=== PATIENT | female | born 1990 | race Asian ===

== ENCOUNTER 2016-08-16 03:25 | Emergency (ER) | payer OTHER ==
[~2016-08-16] VITALS: Ht 165.1 cm; Wt 60.2 kg
[2016-08-16 03:28] VITALS: TEMP 36.8; Ht 165.1 cm; Wt 60.2 kg
[2016-08-16] MEDS ORDERED: SODIUM CHLORIDE 0.9% 1000ML 1,000 ML IV STA (03:37)
[2016-08-16] MEDS ORDERED: FAMOTIDINE IV INJ 20 MG in DEXTROSE 5% 100ML 100 ML IV STA (03:37)
[2016-08-16] MEDS ORDERED: ONDANSETRON INJ 2 MG/ML 2 ML VIAL IV STA (03:37)
[2016-08-16] MEDS ORDERED: FAMOTIDINE 20MG/102 ML D5W ONE (03:47)
[2016-08-16 03:57] LABS: BASO % 0.1 %; BASO ABS # 0.01 K/uL (0-0.2); COMPLETE YES; EOS % 0.5 %; HEMATOCRIT 38.3 % (37-47); IG% 0.1 %; LYMPH % 10.4 %; MEAN CORPUSCULAR HEMOGLOBIN 32.3 pg (25-34); MEAN CORPUSCULAR HGB CONC 33.7 g/dl (32-36); MEAN PLATELET VOLUME 9.8 fL (7.4-10.4); MONO % 5.9 %; PLATELET COUNT 238 K/uL (130-400); RED BLOOD COUNT 3.99 M/uL (4.2-5.4); WHITE BLOOD COUNT 8.64 K/uL (4.8-10.8)
[2016-08-16 04:16] LABS: BUN/CREATININE RATIO 30.1 (10-20); CALCIUM 8.9 mg/dl (8.5-10.1); CREATININE 0.66 mg/dl (0.60-1.20); POTASSIUM 3.8 mmol/L (3.5-5.1)
[2016-08-16 04:18] LABS: PREG INTERNAL NEGATIVE QC NEG CLEAR BACKGROUND; PREG INTERNAL POSITIVE QC POS CONTROL LINE
--- NOTE | 2016-08-16 04:22 | EMERGENCY ROOM VISIT NOTE ---
History First contact with patient: 03:32 Chief Complaint: ABDOMINAL PAIN Stated Complaint: ABD PAIN,VOMITING History of Present Illness The patient is a 25 year old female who presents to the Emergency Room with complaints of nausea and vomiting and upset stomach for the past few hours after eating hot pot soup tonight. Boyfriend is not sick. They ate the same thing. Patient denies chest pain, dyspnea, fever, chills, diarrhea, back pain, urinary symptoms. No other concerns per patient. Review of Systems See HPI for pertinent positives & negatives. A total of 10 systems reviewed and were otherwise negative. Past Medical/Surgical History None Social History Smoking Status: Never Smoker Smokeless Tobacco Use: No Alcohol Use: none Drug Use: none Marital Status: in relationship Occupation Status: [email or web address] student Current/Historical Medications No Active Prescriptions or Reported Meds Allergies Coded Allergies: No Known Allergies (Unverified , 08/16/16) Physical Exam Vital Signs Date Time Temp Pulse Resp B/P Pulse Ox O2 Delivery O2 Flow Rate FiO2 08/16/16 03:28 36.8 87 18 113/74 98 Room Air Physical Exam VITALS: Vitals are noted on the nurse's note and reviewed by myself. Vital signs stable. GENERAL: Pleasant female actively vomiting, in no acute distress, nondiaphoretic , well-developed well-nourished. SKIN: The skin was without rashes, erythema, edema, or bruising. There is no tenting of the skin. Capillary reflex less than 2 seconds. HEAD: Normocephalic atraumatic. EARS: External auditory canals clear, tympanic membranes pearly wells without erythema or effusion bilaterally. EYES: Pupils equal round and reactive to light and accommodation. Conjunctivae without injection, sclerae without icterus. Extraocular movements intact. NOSE: Patent, turbinates without inflammation or discharge. MOUTH: Mucous membranes mildly dry. Pharynx without erythema or exudate. Uvula midline. Airway patent. Tongue does not deviate. NECK: Supple without nuchal rigidity. No lymphadenopathy. No thyromegaly. Cervical spine is nontender. No JVD. HEART: Regular rate and rhythm without murmurs gallops or rubs. LUNGS: Clear to auscultation bilaterally without wheezes, rales or rhonchi. No dullness to percussion. No retractions or accessory muscle use. ABDOMEN: Positive bowel sounds x 4. Normal tympanic percussion. Soft, nontender, without masses or organomegaly. Kay sign negative. No guarding or rebound tenderness. No CVA tenderness MUSCULOSKELETAL: No muscle atrophy, erythema, or edema noted. NEURO: Patient was alert and oriented to person place and time. Normal sensation to light and sharp touch. No focal neurological deficits. Medical Decision & Procedures Laboratory Results 08/16/16 03:45 Red Blood Count 3.99, Mean Corpuscular Volume 96.0, Mean Corpuscular Hemoglobin 32.3, Mean Corpuscular Hemoglobin Concent 33.7, Mean Platelet Volume 9.8, Neutrophils (%) (Auto) 83.0, Lymphocytes (%) (Auto) 10.4, Monocytes (%) (Auto) 5.9, Eosinophils (%) (Auto) 0.5, Basophils (%) (Auto) 0.1, Neutrophils # (Auto) 7.17, Lymphocytes # (Auto) 0.90, Monocytes # (Auto) 0.51, Eosinophils # (Auto) 0.04, Basophils # (Auto) 0.01 08/16/16 03:45 Test 08/16/16 03:45 White Blood Count 8.64 K/uL (4.8-10.8) Red Blood Count 3.99 M/uL (4.2-5.4) Hemoglobin 12.9 g/dL (12.0-16.0) Hematocrit 38.3 % (37-47) Mean Corpuscular Volume 96.0 fL (80-100) Mean Corpuscular Hemoglobin 32.3 pg (25-34) Mean Corpuscular Hemoglobin Concent 33.7 g/dl (32-36) Platelet Count 238 K/uL (130-400) Mean Platelet Volume 9.8 fL (7.4-10.4) Neutrophils (%) (Auto) 83.0 % Lymphocytes (%) (Auto) 10.4 % Monocytes (%) (Auto) 5.9 % Eosinophils (%) (Auto) 0.5 % Basophils (%) (Auto) 0.1 % Neutrophils # (Auto) 7.17 K/uL (1.4-6.5) Lymphocytes # (Auto) 0.90 K/uL (1.2-3.4) Monocytes # (Auto) 0.51 K/uL (0.11-0.59) Eosinophils # (Auto) 0.04 K/uL (0-0.5) Basophils # (Auto) 0.01 K/uL (0-0.2) RDW Standard Deviation 44.6 fL (36.4-46.3) RDW Coefficient of Variation 12.7 % (11.5-14.5) Immature Granulocyte % (Auto) 0.1 % Immature Granulocyte # (Auto) 0.01 K/uL (0.00-0.02) Anion Gap 9.0 mmol/L (3-11) Est Creatinine Clear Calc Drug Dose 118.3 ml/min Estimated GFR () 143.3 Estimated GFR (Non- 123.6 BUN/Creatinine Ratio 30.1 (10-20) Calcium Level 8.9 mg/dl (8.5-10.1) Human Chorionic Gonadotropin, Qual NEG (NEG) Medications Administered Medications (Trade) Dose Ordered Sig/David Route Start Time Stop Time Status Last Admin Dose Admin Ondansetron HCl 4 mg 4 mg NOW STAT IV 08/16/16 03:37 08/16/16 03:38 DC 08/16/16 03:44 4 MG Sodium Chloride (Nss 1000ml) 1,000 ml @ 999 mls/hr Q1H1M STAT IV 08/16/16 03:37 08/16/16 04:37 08/16/16 03:46 999 MLS/HR Famotidine (Pepcid 20mg/100 ml) 20 mg STK-MED ONCE .ROUTE 08/16/16 03:47 08/16/16 03:48 DC 08/16/16 03:54 20 MG ED Course Prior records/ancillary studies reviewed. Triage Nursing notes reviewed. Additional history obtained from the family. The patient's history was concerning for nausea, vomiting Differential diagnosis: Etiologies such as gastritis, food borne illness, infections, appendicitis, diverticulitis, inflammatory bowel disease, obstruction, GI bleed, biliary pathology, as well as others were entertained. Physical examination findings: As above. Abdominal examination revealed no tenderness. Vital signs reviewed and revealed stable. ER treatment provided: IV hydration 1 L NSS. Zofran, Pepcid On reassessment the patient felt better. Patient was tolerating p.o. intake. Diagnostics interpretation by me: The labs revealed no worrisome leukocytosis. Mild hyperglycemia most likely stress-induced from vomiting. Negative hCG This appears to be consistent with vomiting. Patient felt much better after being medicated as above. She did not have acute abdomen on exam. She is well- appearing. She is able tolerate by mouth fluids and ambulate without difficulties. She is advised to rest, stay well-hydrated, do clear liquid diet today and then progress as tolerated to bland diet tomorrow. She is advised follow-up health services in a few days or here in the ER sooner for abdominal pain, fevers, vomiting, worsening signs or symptoms or as needed. By the evaluation outlined above emergent etiologies such as appendicitis, diverticulitis, obstruction, cardiac sources, mesenteric ischemia, aortic pathology, inflammatory bowel disease, renal colic, PUD, biliary pathology, UTI , as well as others were deemed relatively unlikely. The pt informed about the findings as listed above. All questions were answered and pleased with the treatment. Return instructions were outlined and the patient was discharged in stable condition. Outpatient prescription management: zofran Referral: The patient was referred to their primary care physician for follow-up in 2 to 3 days for a recheck of the current condition. Medical Decision As above Impression Primary Impression: Nausea & vomiting Departure Information Dispostion Home / Self-Care Condition GOOD Prescriptions No Active Prescriptions or Reported Meds Referrals No Doctor, Assigned (PCP) Patient Instructions My [facility] Additional Instructions DO NOT drive, drink alcohol, operate machinery, or perform dangerous activities today. You were given medications in the ER that can affect your ability to safely function or operate a vehicle. Zofran(odansetron) tablets 4mg: Take one and allow it to dissolve in your mouth every four to six hours as needed for nausea or vomiting. Acetaminophen(Tylenol) may be used for fever or pain. Use 1000mg every six hours as needed. Avoid using more than 3000mg in a 24 hour period. Rest and drink plenty of fluids as tolerated. Slow sips of water or sports drinks are recommended instead of large amounts all at once. Continue current medications. Once your stomach is settled start with a clear liquid diet (jello, soup broth, etc.) and then advance as tolerated. You should avoid full, heavy meals for about 24 hrs from the time your symptoms resolved. Return to the ER for persistent vomiting, fevers, abdominal pain, chest pains, difficulty breathing, black or bloody stools, worsening of your condition, or as needed. Follow up with your primary physician/health services in 2-3 days for a recheck of your current condition. Problem Qualifiers Primary Impression: Nausea & vomiting Vomiting type: unspecified Vomiting Intractability: non-intractable Qualified Codes: R11.2 - Nausea with vomiting, unspecified
[2016-08-16] MEDS ORDERED: ONDANSETRON HOME PACK 4MG OD TAB PO ONE (04:30)
[2016-08-16 05:01] VITALS: BP 116/65; PULSE 92; O2SAT 100
[2016-08-16] MEDS ORDERED: ONDA4TAB65 PO (17:26)
[2016-08-17] MEDS ORDERED: ONDA4TAB65 PO (15:58)
== END 2016-08-16 05:01 | disposition home or self-care (01) ==
LOC: C.EDB 03:26 → C.EDA 05:01
DX: R11.2 Nausea with vomiting, unspecified (principal)

== ENCOUNTER 2016-08-16 17:00 | Observation (INO) | payer OTHER ==
[2016-08-16] MEDS ORDERED: ONDA4TAB65 PO (17:26)
[2016-08-16] MEDS ORDERED: KETOROLAC TROMETHAMINE 30 MG/ML VIAL IV STA (18:02)
[2016-08-16] MEDS ORDERED: ONDANSETRON INJ 2 MG/ML 2 ML VIAL IV STA (18:02)
[2016-08-16] MEDS ORDERED: PROMETHAZINE HCL INJ 6.25 MG in SODIUM CHLORIDE 0.9% 50ML 50 ML IV STA (18:02)
[2016-08-16] MEDS ORDERED: SODIUM CHLORIDE 0.9% 1000ML 1,000 ML IV STA ×2 (18:02)
--- NOTE | 2016-08-16 18:28 | EMERGENCY ROOM VISIT NOTE ---
History Report prepared by Zo: Brooke Kumar Under the Supervision of: Dr. Leon Wolfe M.D. First contact with patient: 17:26 Chief Complaint: ABDOMINAL PAIN Stated Complaint: ABD PAIN, VOMITING, HERE EARLIER, GETTING WORSE History of Present Illness The patient is a 25 year old female who presents to the Emergency Room with complaints of persistent epigastric abdominal pain that began early this morning. The patient initially started having abdominal pain and vomiting early this morning just after midnight. Prior to the start of her symptoms, she does report eating hot pot, which is a meat dish where the meat is cooked slowly over a period of time. Her boyfriend also ate this food but did not get any similar symptoms. The patient came to the emergency room a few hours after her symptoms began and was given Zofran, Pepcid, and fluids. She was discharged feeling better. Since then, she has been using Zofran and Tylenol but has continued to have breakthrough symptoms. Her vomit has been clear with a yellow/ green tint. She has had about 6-7 episodes of vomiting since leaving the ER this morning. When she vomits, she does have some improvement of her abdominal pain for about an hour. Her current discomfort is a 5/10 in severity and is described as dull. Per patient's boyfriend, the patient had a low-grade fever a couple hours ago which seems to have resolved. She reports drinking a few sips of beer last night. Denies chills, diarrhea, constipation, back pain, urinary symptoms, or other complaints. She does not have a history of abdominal surgeries. She denies any known sick contacts or foreign travel. Source of History: patient, spouse/significant other Onset: early this morning Position: abdomen (epigastric) Symptom Intensity: 5/10 Quality: dull Timing: other (persistent) Modifying Factors (Relieving): other (vomiting) Associated Symptoms: + fevers (low grade), + vomiting, No back pain, No chills, No diarrhea Review of Systems See HPI for pertinent positives & negatives. A total of 10 systems reviewed and were otherwise negative. Past Medical & Surgical Medical Problems: (1) Nausea and vomiting Family History No pertinent family history stated. Social History Smoking Status: Never Smoker Alcohol Use: none Drug Use: none Marital Status: in relationship Occupation Status: [employer] student Current/Historical Medications Scheduled PRN Ondansetron Hcl (Zofran), 4 MG PO Q6 PRN for Nausea Allergies Coded Allergies: No Known Allergies (Unverified , 08/16/16) Physical Exam Vital Signs Date Time Temp Pulse Resp B/P Pulse Ox O2 Delivery O2 Flow Rate FiO2 08/16/16 18:55 54 20 107/64 98 Room Air 08/16/16 17:05 36.8 95 20 103/66 95 Room Air Physical Exam GENERAL: Patient is in no acute distress. HEENT: No acute trauma, normocephalic atraumatic, mucous membranes dry, no nasal congestion, no scleral icterus. NECK: No stridor, no adenopathy, no meningismus, trachea is midline. LUNGS: Clear to auscultation bilaterally, no wheeze, no rhonchi, breath sounds equal. HEART: Without murmurs gallops or rubs, regular rate and rhythm. ABDOMEN: Soft, tender in both upper quadrants and the epigastrium, no discomfort in the right lower quadrant, bowel sounds positive, no hernias, no peritonitis. EXTREMITIES: No cyanosis or edema, full range of motion of all the joints without pain or difficulty, no signs for acute trauma. NEUROLOGIC: Oriented x 3, no acute motor or sensory deficits, no focal weakness. SKIN: No rash, no jaundice, no diaphoresis. Medical Decision & Procedures ER Provider Diagnostic Interpretation: X-ray results as stated below per interpretation by me and the radiologist: PA CHEST WITH ABDOMINAL SERIES CLINICAL HISTORY: Generalized abdominal pain. FINDINGS: A PA chest radiograph is obtained. No prior studies are available for comparison at the time of dictation. The cardiomediastinal silhouette is unremarkable. The lungs and pleural spaces are clear. No pneumothorax is seen. The bony thorax is grossly intact. Supine and erect abdominal radiograph are obtained. No prior studies are available for comparison at the time of dictation. There is a nonobstructed abdominal bowel gas pattern. Mild to moderate colonic fecal retention is noted. No intraperitoneal free air is seen. There are no abnormal abdominal calcifications. Lumbosacral spine and bony pelvis appear intact. IMPRESSION: 1. No active disease in the chest. 2. Unremarkable abdominal radiographs. Electronically signed by: Leon Mcguire M.D. 08/16/2016 7:18 PM Dictated Date/Time: 08/16/2016 7:16 PM Laboratory Results 08/16/16 18:00 Red Blood Count 3.92, Mean Corpuscular Volume 95.4, Mean Corpuscular Hemoglobin 32.4, Mean Corpuscular Hemoglobin Concent 34.0, Mean Platelet Volume 10.0, Neutrophils (%) (Auto) 89.5, Lymphocytes (%) (Auto) 3.8, Monocytes (%) (Auto) 6.6, Eosinophils (%) (Auto) 0.0, Basophils (%) (Auto) 0.0, Neutrophils # (Auto) 7.60, Lymphocytes # (Auto) 0.32, Monocytes # (Auto) 0.56, Eosinophils # (Auto) 0.00, Basophils # (Auto) 0.00 08/16/16 18:00 Test 08/16/16 18:00 White Blood Count 8.49 K/uL (4.8-10.8) Red Blood Count 3.92 M/uL (4.2-5.4) Hemoglobin 12.7 g/dL (12.0-16.0) Hematocrit 37.4 % (37-47) Mean Corpuscular Volume 95.4 fL (80-100) Mean Corpuscular Hemoglobin 32.4 pg (25-34) Mean Corpuscular Hemoglobin Concent 34.0 g/dl (32-36) Platelet Count 214 K/uL (130-400) Mean Platelet Volume 10.0 fL (7.4-10.4) Neutrophils (%) (Auto) 89.5 % Lymphocytes (%) (Auto) 3.8 % Monocytes (%) (Auto) 6.6 % Eosinophils (%) (Auto) 0.0 % Basophils (%) (Auto) 0.0 % Neutrophils # (Auto) 7.60 K/uL (1.4-6.5) Lymphocytes # (Auto) 0.32 K/uL (1.2-3.4) Monocytes # (Auto) 0.56 K/uL (0.11-0.59) Eosinophils # (Auto) 0.00 K/uL (0-0.5) Basophils # (Auto) 0.00 K/uL (0-0.2) RDW Standard Deviation 45.0 fL (36.4-46.3) RDW Coefficient of Variation 12.9 % (11.5-14.5) Immature Granulocyte % (Auto) 0.1 % Immature Granulocyte # (Auto) 0.01 K/uL (0.00-0.02) Anion Gap 10.0 mmol/L (3-11) Estimated GFR () 147.1 Estimated GFR (Non- 126.9 BUN/Creatinine Ratio 22.9 (10-20) Calcium Level 8.8 mg/dl (8.5-10.1) Total Bilirubin 1.1 mg/dl (0.2-1) Aspartate Amino Transf (AST/SGOT) 11 U/L (15-37) Alanine Aminotransferase (ALT/SGPT) 17 U/L (12-78) Alkaline Phosphatase 70 U/L (45-117) Total Protein 7.5 gm/dl (6.4-8.2) Albumin 4.0 gm/dl (3.4-5.0) Globulin 3.5 gm/dl (2.5-4.0) Albumin/Globulin Ratio 1.1 (0.9-2) Lipase 98 U/L (73-393) Laboratory results reviewed by me. Medications Administered Medications (Trade) Dose Ordered Sig/David Route Start Time Stop Time Status Last Admin Dose Admin Ondansetron HCl 4 mg 4 mg NOW STAT IV 08/16/16 18:02 08/16/16 18:04 DC 08/16/16 18:02 4 MG Sodium Chloride 1,000 ml @ 200 mls/hr Q5H STAT IV 08/16/16 18:02 08/16/16 23:01 08/16/16 19:45 200 MLS/HR Sodium Chloride (Nss 1000ml) 1,000 ml @ 999 mls/hr Q1H1M STAT IV 08/16/16 18:02 08/16/16 19:02 DC 08/16/16 18:02 999 MLS/HR Ketorolac Tromethamine 30 mg 30 mg NOW STAT IV 08/16/16 18:02 08/16/16 18:04 DC 08/16/16 18:02 30 MG Promethazine HCl/ Sodium Chloride (Phenergan Inj/ Nss 50ml) 50.25 ml @ 204 mls/hr NOW STAT IV 08/16/16 18:02 08/16/16 18:16 DC 08/16/16 18:02 204 MLS/HR ED Course 1802: The patient was evaluated in room A11. A complete history and physical exam was performed. Ordered Promethazine HCl 6.25 mg/NSS 50.25 ml @ 204 mls/hr IV, Toradol Inj 30 mg IV, NSS 1000 ml @ 999 mls/hr IV, NSS 1000 ml @ 200 mls/hr IV, Zofran Inj 4 mg IV. 2004: Upon reexamination the patient is doing somewhat better but does not feel comfortable going home. I discussed results and treatment plan with the patient. She verbalizes agreement and understanding. The patient will be evaluated for further management. 2010: I discussed the case with Dr. Eva GASTELUM Hospitalist. The patient will be evaluated for further management. Medical Decision Differential includes food bourne illness, viral illness, bowel obstruction, acute cholecystitis, acute pancreatitis, acute appendicitis, UTI, failed outpatient treatment. There is no leukocytosis or worrisome anemia. No significant electrolyte abnormality, kidney failure or hepatitis. There is no pancreatitis. Obstruction series shows no free air, pneumonia or bowel obstruction. On exam, the patient was not toxic, she did not have peritonitis. The patient received IV saline, IV Toradol. She was given IV Zofran and IV Phenergan. Certainly, her illness does sound viral, although appendicitis is a consideration. I did talk with her at length. I spoke with the caser up. The on-call hospitalist was consulted. Consults Time Called: 2007 Consulting Physician: Dr. Eva GASTELUM Hospitalist Returned Call: 2010 I discussed the case with him. The patient will be evaluated for further management. Impression Primary Impression: Dehydration Additional Impressions: Epigastric abdominal pain Vomiting Failure of outpatient treatment Scribe Attestation The scribe's documentation has been prepared under my direction and personally reviewed by me in its entirety. I confirm that the note above accurately reflects all work, treatment, procedures, and medical decision making performed by me. Departure Information Dispostion Being Evaluated By Hospitalist Referrals [facility] (PCP) Patient Instructions My [facility] Problem Qualifiers
[2016-08-16 18:53] LABS: COMPLETE YES; HEMATOCRIT 37.4 % (37-47); IG% 0.1 %; LYMPH % 3.8 %; LYMPH ABS # 0.32 K/uL (1.2-3.4); MEAN CELL VOLUME 95.4 fL (80-100); MEAN CORPUSCULAR HEMOGLOBIN 32.4 pg (25-34); MONO % 6.6 %; NEUT % 89.5 %; PLATELET COUNT 214 K/uL (130-400); RED BLOOD COUNT 3.92 M/uL (4.2-5.4); WHITE BLOOD COUNT 8.49 K/uL (4.8-10.8)
--- NOTE | 2016-08-16 19:19 | DIAGNOSTIC IMAGING REPORT ---
PA CHEST WITH ABDOMINAL SERIES CLINICAL HISTORY: Generalized abdominal pain. FINDINGS: A PA chest radiograph is obtained. No prior studies are available for comparison at the time of dictation. The cardiomediastinal silhouette is unremarkable. The lungs and pleural spaces are clear. No pneumothorax is seen. The bony thorax is grossly intact. Supine and erect abdominal radiograph are obtained. No prior studies are available for comparison at the time of dictation. There is a nonobstructed abdominal bowel gas pattern. Mild to moderate colonic fecal retention is noted. No intraperitoneal free air is seen. There are no abnormal abdominal calcifications. Lumbosacral spine and bony pelvis appear intact. IMPRESSION: 1. No active disease in the chest. 2. Unremarkable abdominal radiographs. Electronically signed by: Leon Mcguire M.D. 08/16/2016 7:18 PM Dictated Date/Time: 08/16/2016 7:16 PM
[2016-08-16 19:50] LABS: ALB/GLOB RATIO 1.1 (0.9-2); ALKALINE PHOSPHATASE 70 U/L (45-117); ALT/SGPT 17 U/L (12-78); AST/SGOT 11 U/L (15-37); BLOOD UREA NITROGEN 14 mg/dl (7-18); BUN/CREATININE RATIO 22.9 (10-20); CALCIUM 8.8 mg/dl (8.5-10.1); CARBON DIOXIDE 25 mmol/L (21-32); CHLORIDE 104 mmol/L (98-107); CREATININE 0.61 mg/dl (0.60-1.20); GLUCOSE 98 mg/dl (70-99); POTASSIUM 3.1 mmol/L (3.5-5.1); SODIUM 139 mmol/L (136-145)
--- NOTE | 2016-08-16 20:57 | History and Physical ---
History & Physical Date & Time of Service: Aug 16, 2016 at 20:55 Chief Complaint: Abd Pain, Vomiting, Here Earlier, Getting Worse Primary Care Physician: [facility] History of Present Illness Source: patient, partner 25 y/o F who denies any significant medical history. She had prepared a hot pot dinner the previous evening and began vomiting approximately 4 hours following. This continued throughout the night. She presented to the ER in the AM and was treated with fluids and antiemetics and D/Cd. She again began to vomit and has not been able to tolerate PO solids or fluids. She returned to the ER and continues to exhibit nausea with occasional bilious vomiting so that she will be assigned to overnight observation. She has mild abdminal cramping pain, denies diarrhea or fevers. 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[facility] - no drinking or smoking Smoking Status: Never Smoker Drug Use: none Marital Status: in relationship Occupational Status: [employer] student Allergies Coded Allergies: No Known Allergies (Unverified , 08/16/16) Home Medications Scheduled PRN Ondansetron Hcl (Zofran), 4 MG PO Q6 PRN for Nausea Review of Systems Constitutional: No chills, No fever, No sweats Eyes: No eye pain, No worsening of vision ENT: No hearing loss, No nasal symptoms, No unusual epistaxis Respiratory: No cough, No sputum, No wheezing Cardiovascular: No PND, No chest pain, No orthopnea Abdomen: + nausea, + pain, + vomiting Musculoskeletal: No joint pain, No muscle pain Genitourinary - Female: No dysuria, No urinary frequency Neurologic: No memory loss, No paralysis, No weakness Psychiatric: No depression symptoms Endocrine: No fatigue Hematologic / Lymphatic: No abnormal bleeding/bruising Integumentary: No rash Allergic / Immunologic: No environmental allergies Physical Exam Vital Signs Date Time Temp Pulse Resp B/P Pulse Ox O2 Delivery O2 Flow Rate FiO2 08/16/16 18:55 54 20 107/64 98 Room Air 08/16/16 17:05 36.8 95 20 103/66 95 Room Air General Appearance: WD/WN, no apparent distress Head: normocephalic, atraumatic Eyes: normal inspection, PERRL, EOMI ENT: normal ENT inspection, hearing grossly normal Neck: supple, no JVD Respiratory/Chest: chest non-tender, lungs clear, normal breath sounds, no respiratory distress, no accessory muscle use Cardiovascular: regular rate, rhythm, no edema, no gallop, no JVD, no murmur, normal peripheral pulses Abdomen/GI: normal bowel sounds, non tender, soft, no organomegaly, no pulsatile mass, normal rectal exam, occult blood negative Back: normal inspection Extremities/Musculoskelatal: normal inspection, no calf tenderness, normal capillary refill, no pedal edema, normal range of motion 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, no motor/sensory deficits, alert, normal mood/affect, normal reflexes, oriented x 3 Skin: normal color, warm/dry, no rash Diagnostics Laboratory Results Results Past 24 Hours Test 08/16/16 18:00 Range/Units White Blood Count 8.49 4.8-10.8 K/uL Red Blood Count 3.92 4.2-5.4 M/uL Hemoglobin 12.7 12.0-16.0 g/dL Hematocrit 37.4 37-47 % Mean Corpuscular Volume 95.4 80-100 fL Mean Corpuscular Hemoglobin 32.4 25-34 pg Mean Corpuscular Hemoglobin Concent 34.0 32-36 g/dl Platelet Count 214 130-400 K/uL Mean Platelet Volume 10.0 7.4-10.4 fL Neutrophils (%) (Auto) 89.5 % Lymphocytes (%) (Auto) 3.8 % Monocytes (%) (Auto) 6.6 % Eosinophils (%) (Auto) 0.0 % Basophils (%) (Auto) 0.0 % Neutrophils # (Auto) 7.60 1.4-6.5 K/uL Lymphocytes # (Auto) 0.32 1.2-3.4 K/uL Monocytes # (Auto) 0.56 0.11-0.59 K/uL Eosinophils # (Auto) 0.00 0-0.5 K/uL Basophils # (Auto) 0.00 0-0.2 K/uL RDW Standard Deviation 45.0 36.4-46.3 fL RDW Coefficient of Variation 12.9 11.5-14.5 % Immature Granulocyte % (Auto) 0.1 % Immature Granulocyte # (Auto) 0.01 0.00-0.02 K/uL Sodium Level 139 136-145 mmol/L Potassium Level 3.1 3.5-5.1 mmol/L Chloride Level 104 98-107 mmol/L Carbon Dioxide Level 25 21-32 mmol/L Anion Gap 10.0 3-11 mmol/L Blood Urea Nitrogen 14 7-18 mg/dl Creatinine 0.61 0.60-1.20 mg/dl Estimated GFR () 147.1 Estimated GFR (Non- 126.9 BUN/Creatinine Ratio 22.9 10-20 Random Glucose 98 70-99 mg/dl Calcium Level 8.8 8.5-10.1 mg/dl Total Bilirubin 1.1 0.2-1 mg/dl Aspartate Amino Transf (AST/SGOT) 11 15-37 U/L Alanine Aminotransferase (ALT/SGPT) 17 12-78 U/L Alkaline Phosphatase 70 45-117 U/L Total Protein 7.5 6.4-8.2 gm/dl Albumin 4.0 3.4-5.0 gm/dl Globulin 3.5 2.5-4.0 gm/dl Albumin/Globulin Ratio 1.1 0.9-2 Lipase 98 73-393 U/L Impression Assessment and Plan 25 y/o F who denies any significant medical history. She had prepared a hot pot dinner the previous evening and began vomiting approximately 4 hours following. This continued throughout the night. She presented to the ER in the AM and was treated with fluids and antiemetics and D/Cd. She again began to vomit and has not been able to tolerate PO solids or fluids. She returned to the ER and continues to exhibit nausea with occasional bilious vomiting so that she will be assigned to overnight observation. She has mild abdominal cramping pain, denies diarrhea or fevers. This will be treated as gastritis possibly due to food contamination - we will provide aggressive IVF and antiemetics as needed She has hypokalemia and will receive K and Mg and we will recheck labs AM If symptoms do not resolve overnight we can consult GI or explore a gallbladder etiology Total time for this admit inclusding discussion with ot's partner, ER MD - review of labs and records - 28 min Level of Care Med/Surg Resuscitation Status FULL RESUSCITATION VTE Prophylaxis Given or contraindicated: Unfractionated heparin SQ
[2016-08-16] MEDS ORDERED: POTASSIUM CHLR 20 MEQ / WTR 20 MEQ in PREMIXED WATER 100 ML IV SCH (21:00)
[2016-08-16] MEDS ORDERED: POTASSIUM CHLORIDE 10 MEQ / 100ML WTR IV ONE (21:01)
[2016-08-16] MEDS ORDERED: MoRPHine SULFATE 4 MG/ML 1 ML CARP\\VIAL IV STA (21:13)
[2016-08-16] MEDS ORDERED: ONDANSETRON INJ 2 MG/ML 2 ML VIAL IV PRN (21:15)
[2016-08-16] MEDS ORDERED: ZOLPIDEM TARTRATE 5 MG TAB PO PRN (21:15)
[2016-08-16] MEDS ORDERED: METOCLOPRAMIDE HCL INJ 5 MG/ML 2 ML VIAL IV PRN (21:15)
[2016-08-16] MEDS ORDERED: ACETAMINOPHEN 325 MG TAB PO PRN (21:15)
[2016-08-16] MEDS ORDERED: MAGNESIUM SULFATE 1GM / D5W 1 GM IV STA (21:21)
[2016-08-16] MEDS ORDERED: IV FLUIDS COMPLETED PRN (21:45)
[2016-08-17] MEDS: D5NSS + 20MEQ KCL 1,000 ML IV SCH ×2 (02:03→09:58)
[2016-08-17 04:42] VITALS: BP 89/52; PULSE 64; TEMP 36.7
[2016-08-17 06:47] LABS: INR 1.1 (0.9-1.1); PROTHROMBIN TIME (PATIENT) 11.8 SECONDS (9.0-12.0)
[2016-08-17 07:19] LABS: BLOOD UREA NITROGEN 14 mg/dl (7-18); BUN/CREATININE RATIO 29.8 (10-20); CALCIUM 7.5 mg/dl (8.5-10.1); CARBON DIOXIDE 24 mmol/L (21-32); CHLORIDE 113 mmol/L (98-107); CREATININE 0.46 mg/dl (0.60-1.20); GLUCOSE 109 mg/dl (70-99); MAGNESIUM 2.5 mg/dl (1.8-2.4); POTASSIUM 3.4 mmol/L (3.5-5.1); SODIUM 144 mmol/L (136-145)
[2016-08-17 07:45] VITALS: BP 88/49; PULSE 61; TEMP 36.7; O2SAT 97
[2016-08-17 08:00] VITALS: O2SAT 97
[2016-08-17] MEDS: HEPARIN SOD 5000 UNIT/0.5 ML CARP SQ SCH ×2 (10:00→14:30)
[2016-08-17 15:57] VITALS: BP 81/50; PULSE 53; TEMP 36.7; O2SAT 98
[2016-08-17] MEDS ORDERED: ONDA4TAB65 PO (15:58)
--- NOTE | 2016-08-17 16:02 | Discharge Instructions ---
Discharge Instructions Admission Reason for Admission: Intractable Nausea And Vomiting Discharge Discharge Diagnosis / Problem: Gastroenteritis, suspected due to foodborne pathogen Discharge Goals Goal(s): Decrease discomfort, Improve function Activity Recommendations Activity Limitations: resume your previous activity . Current Hospital Diet Patient's current hospital diet: Clear Liquid Diet Discharge Diet Recommended Diet: Regular Diet (slowly advance diet back to your regular diet) Pending Studies Studies pending at discharge: no Laboratory Results Last 24 Hours Test 08/16/16 18:00 08/17/16 05:59 White Blood Count 8.49 K/uL Red Blood Count 3.92 M/uL Hemoglobin 12.7 g/dL Hematocrit 37.4 % Mean Corpuscular Volume 95.4 fL Mean Corpuscular Hemoglobin 32.4 pg Mean Corpuscular Hemoglobin Concent 34.0 g/dl Platelet Count 214 K/uL Mean Platelet Volume 10.0 fL Neutrophils (%) (Auto) 89.5 % Lymphocytes (%) (Auto) 3.8 % Monocytes (%) (Auto) 6.6 % Eosinophils (%) (Auto) 0.0 % Basophils (%) (Auto) 0.0 % Neutrophils # (Auto) 7.60 K/uL Lymphocytes # (Auto) 0.32 K/uL Monocytes # (Auto) 0.56 K/uL Eosinophils # (Auto) 0.00 K/uL Basophils # (Auto) 0.00 K/uL RDW Standard Deviation 45.0 fL RDW Coefficient of Variation 12.9 % Immature Granulocyte % (Auto) 0.1 % Immature Granulocyte # (Auto) 0.01 K/uL Sodium Level 139 mmol/L 144 mmol/L Potassium Level 3.1 mmol/L 3.4 mmol/L Chloride Level 104 mmol/L 113 mmol/L Carbon Dioxide Level 25 mmol/L 24 mmol/L Anion Gap 10.0 mmol/L 7.0 mmol/L Blood Urea Nitrogen 14 mg/dl 14 mg/dl Creatinine 0.61 mg/dl 0.46 mg/dl Estimated GFR () 147.1 > 150.0 Estimated GFR (Non- 126.9 139.2 BUN/Creatinine Ratio 22.9 29.8 Random Glucose 98 mg/dl 109 mg/dl Calcium Level 8.8 mg/dl 7.5 mg/dl Total Bilirubin 1.1 mg/dl Aspartate Amino Transf (AST/SGOT) 11 U/L Alanine Aminotransferase (ALT/SGPT) 17 U/L Alkaline Phosphatase 70 U/L Total Protein 7.5 gm/dl Albumin 4.0 gm/dl Globulin 3.5 gm/dl Albumin/Globulin Ratio 1.1 Lipase 98 U/L Prothrombin Time 11.8 SECONDS Prothromb Time International Ratio 1.1 Magnesium Level 2.5 mg/dl Medical Emergencies . Who to Call and When: Medical Emergencies: If at any time you feel your situation is an emergency, please call 911 immediately. . Non-Emergent Contact Non-Emergency issues call your: Primary Care Provider Call Non-Emergent contact if: you have a fever, your pain is worsening, you have any medication questions . . "Provider Documentation" section prepared by Almas Jackson. VTE Core Measure Inpt VTE Proph given/why not?: Unfractionated heparin SQ
--- NOTE | 2016-08-17 16:03 | Discharge Summary ---
Discharge Summary Admission Date: Aug 16, 2016 at 21:08 Discharge Date: Aug 17, 2016 Discharge Disposition: Home Principal Diagnosis: Gastroenteritis, likely due to food-borne pathogen Medication Reconciliation Continued Medications: Ondansetron Hcl (Zofran) 4 Mg Tab 4 MG PO Q6 PRN for Nausea for 5 Days, #20 TAB (This prescription has been renewed) Discharge Exam Physical Exam: General Appearance: no apparent distress Eyes: sclerae normal Neck: no JVD Respiratory/Chest: normal breath sounds, no respiratory distress Cardiovascular: regular rate, rhythm, no murmur Abdomen / GI: normal bowel sounds, non tender, soft Extremities: no pedal edema Neurologic/Psychiatric: alert, oriented x 3 Skin: warm/dry Hospital Course Ms. Vargas is a 25-year-old female with no significant past medical history who presented to the ED complaining of fever, crampy epigastric abdominal pain, nausea, and vomiting after eating a hot pot dinner. Her significant other ate the same meal and did not become ill. Her work up in the ED was rather non- revealing. She was given IV fluids and sent home with Tylenol and Zofran. She returned later in the day complaining of ongoing abdominal pain and continued vomiting. Her work up at this point was significant for a potassium of 3.1. She was started on IV fluids and anti-emetics and was admitted for observation. By the morning, she reports feeling much better. Her diet is being advanced and she will be discharged later today if she tolerates. She can continue to use Zofran prn at home. Total Time Spent: Less than 30 minutes This includes examination of the patient, discharge planning, medication reconciliation, and communication with other providers. Discharge Instructions Please refer to the electronic Patient Visit Report (Discharge Instructions) for additional information. Follow-Up with PCP at [facility] within one week. Additional Copies To [facility]
[2016-08-17 16:11] VITALS: BP 81/50; PULSE 53; TEMP 36.7; O2SAT 98
== END 2016-08-17 17:00 | disposition home or self-care (01) ==
LOC: ENRESERVTM → ENRESERVDT → C.EDB 17:01 → C.4E 21:08
PROVIDERS: ADMIT Internal Medicine; ATTEND Hospitalist
DX: K52.9 Noninfective gastroenteritis and colitis, unspecified (principal); E87.6 Hypokalemia; E86.0 Dehydration